=== PATIENT | male | born 1995 | race Two or more races ===

== ENCOUNTER → 2022-04-12 | Emergency (ER) | payer MEDICAID, OTHER ==
[~2022-04-12] VITALS: Ht 177.8 cm; Wt 68.0 kg
[~2022-04-12] MED LIST: AMOX-430 PO; IBUPROFEN 600 MG TABLET ONE; IBUPROFEN 600 MG TABLET PO ONE
[2022-04-12 02:25] VITALS: BP 128/77
--- NOTE | 2022-04-12 02:31 | NUR ---
[facility] FOR SUICIDAL IDEATION. AAOX4. NOT IN DISTRESS. AMBULATORY. PT WANT TO BE ADMITTED VOLUNTARILY, PLAN HAS NO SPECIFIC PLANS. DENIES HOMICIDAL IDEATION. PT WAS PLACED IN A GOWN, BELONGINGS PLACED IN LOCKER. AND SITTER WITHIN SIGHT. URINE AND COVID SWAB COLLECTED AND SENT TO LAB.
[2022-04-12 02:53] LABS: BASOPHILS % (AUTO) 0.1 % (0.0-2.0); EOSINOPHILS % (AUTO) 0.4 % (0.0-6.0); HEMATOCRIT 41 % (39-51); HEMOGLOBIN 13.7 g/dL (13.5-17.5); LYMPHOCYTES # (AUTO) 2.3 K/uL (0.8-4.8); LYMPHOCYTES % (AUTO) 9.5 % (20.0-44.0); MEAN CORPUSCULAR HGB CONC 33 g/dl (31.0-36.0); MEAN CORPUSCULAR VOLUME 88 fL (80-96); MONOCYTES # (AUTO) 1.6 K/uL (0.1-1.30); MONOCYTES % (AUTO) 6.6 % (2.0-12.0); NEUTROPHILS # (AUTO) 20.6 K/uL (1.8-8.9); NEUTROPHILS % (AUTO) 83.4 % (43.0-81.0); PLATELET COUNT (AUTO) 390 K/uL (150-450); RED BLOOD CELL COUNT(AUTO) 4.65 MIL/uL (4.5-6.0); WHITE BLOOD COUNT (AUTO) 24.7 K/uL (4.3-11.0)
[2022-04-12 03:27] LABS: ALANINE AMINOTRANSFERASE 27 U/L (12-78); ALBUMIN 3.9 g/dL (3.4-5.0); ALKALINE PHOSPHATASE 78 U/L (46-116); ASPARTATE AMINOTRANSFERASE 23 U/L (15-37); BILIRUBIN,DIRECT 0.2 mg/dL (0.0-0.2); BILIRUBIN,TOTAL 0.9 mg/dL (0.2-1.0); CALCIUM, SERUM 9.7 mg/dL (8.5-10.1); CARBON DIOXIDE 25 mmol/L (21-32); CHLORIDE 96 mmol/L (98-107); CREATININE 0.8 mg/dL (0.6-1.3); GLUCOSE 99 mg/dL (74-106); POTASSIUM 3.6 mmol/L (3.5-5.1); SODIUM SERUM 132 mmol/L (136-145); UREA NITROGEN, BLOOD 13 mg/dL (7-18)
[2022-04-12 03:43] LABS: ACETAMINOPHEN 0 ug/ml (10-30); ALCOHOL, BLOOD < 3 mg/dL (0-0)
[2022-04-12 04:52] LABS: BILIRUBIN,URINE NEGATIVE (NEGATIVE); COLOR,URINE YELLOW (YELLOW); LEUKOCYTE ESTERASE ,URINE NEGATIVE (NEGATIVE); NITRITE, URINE NEGATIVE (NEGATIVE); PH,URINE 6.5 (5.0-8.0); PROTEIN,URINE NEGATIVE (NEGATIVE); UGLUCOSE NEGATIVE (NEGATIVE); UROBILINOGEN,URINE 0.2 EU/dL (0.2)
--- NOTE | 2022-04-12 04:53 | NUR ---
MEDICALLY CLEAREDBY DR COLLAZO
--- NOTE | 2022-04-12 05:33 | NUR ---
faxed [facility] to [facility] at [phone] and [phone]
--- NOTE | 2022-04-12 07:40 | NUR ---
PT AMBULATED TO NURSE STATION WITH STEADY GAIT, ASKING FOR BREAKFAST TRAY, FOOD ORDERED.
--- NOTE | 2022-04-12 08:12 | NUR ---
SPOKE TO ALEX FROM [place] ,SHE WILL CALL BACK FOR AN UPDATE.
--- NOTE | 2022-04-12 10:10 | NUR ---
PHLEB ABLE TO DRAW BLOOD
[2022-04-12 10:16] LABS: BASOPHILS # (AUTO) 0.1 K/uL (0.0-0.2); BASOPHILS % (AUTO) 0.3 % (0.0-2.0); EOSINOPHILS % (AUTO) 1.9 % (0.0-6.0); HEMATOCRIT 39 % (39-51); HEMOGLOBIN 12.8 g/dL (13.5-17.5); LYMPHOCYTES % (AUTO) 16.1 % (20.0-44.0); MEAN CORPUSCULAR HGB CONC 33 g/dl (31.0-36.0); MEAN CORPUSCULAR VOLUME 88 fL (80-96); MONOCYTES # (AUTO) 1.3 K/uL (0.1-1.30); NEUTROPHILS # (AUTO) 13.9 K/uL (1.8-8.9); NEUTROPHILS % (AUTO) 74.7 % (43.0-81.0); PLATELET COUNT (AUTO) 385 K/uL (150-450); RED BLOOD CELL COUNT(AUTO) 4.46 MIL/uL (4.5-6.0); WHITE BLOOD COUNT (AUTO) 18.7 K/uL (4.3-11.0)
--- NOTE | 2022-04-12 16:16 | NUR ---
ACCEPTED TO [facility] UNDER DR. PAUL PLEASE CALL [phone] FOR REPORT.
--- NOTE | 2022-04-12 16:19 | NUR ---
[facility] CALLED FOR TRANSPORT ETA 30 MINS PER [facility].
== END ==
LOC: ER 02:23
DX: R45.851 Suicidal ideations (principal); F17.210 Nicotine dependence, cigarettes, uncomplicated; D72.829 Elevated white blood cell count, unspecified; Z20.822 Contact with and (suspected) exposure to COVID-19; R44.0 Auditory hallucinations; K02.9 Dental caries, unspecified
CPT/HCPCS: 99285; 85025 ×2; 80048; 80076; 81003; 36415; 87426; 80143; 80320; 80307; C9803; G0480